=== PATIENT | male | born 1960 | race Caucasian/White ===

== ENCOUNTER 2022-09-22 11:20 | Inpatient (IN) | payer OTHER ==
[~2022-09-22] VITALS: Ht 162.6 cm; Wt 122.0 kg
[2022-09-22] VITALS (7 sets, daily range): BP systolic 147–163; BP diastolic 80–87; PULSE 55–87; RESP 18–22; TEMP 97.7–98.2; O2SAT 95–99
[2022-09-22] MEDS ORDERED: ONDANSETRON HCL INJ 2MG/ML 2ML 2 MG/ML VIAL IV STA (11:44)
[2022-09-22] MEDS ORDERED: KETOROLAC TROMETHAMINE 30 MG/ML VIAL IV STA (11:44)
[2022-09-22] MEDS ORDERED: FAMOTIDINE 20 MG/2 ML VIAL IV STA (11:44)
[2022-09-22] MEDS ORDERED: SODIUM CHLORIDE 0.9% 1000ML 1,000 ML ONE (11:49)
[2022-09-22] MEDS ORDERED: SODIUM CHLORIDE 0.9% 1000ML 1,000 ML IV ONE (12:00)
[2022-09-22] MEDS ORDERED: IOPAMIDOL 370 MG/ML 100 ML INFUS..BTL INJ ONE (12:03)
[2022-09-22] MEDS ORDERED: Vancomycin IV 1 GM in SODIUM CHLORIDE 0.9% 250ML 250 ML IV SCH (13:15)
[2022-09-22] MEDS ORDERED: SODIUM CHLORIDE 0.9% 250ML 250 ML ONE (13:30)
[2022-09-22] MEDS ORDERED: Vancomycin IV 1 GM VIAL ONE (13:30)
[2022-09-22] MEDS ORDERED: CANDESARTAN CIL16 MG PO (15:19)
[2022-09-22] MEDS ORDERED: CHLORTHALIDONE25 MG PO (15:19)
[2022-09-22] MEDS ORDERED: ATENOLOL25 MG PO (15:19)
[2022-09-22] MEDS ORDERED: AMLODIPINE BESYL5 MG PO (15:19)
[2022-09-22] MEDS: D5NS/KCL 20MEQ 1,000 ML IV SCH (16:45)
[2022-09-22] MEDS: ONDANSETRON HCL INJ 2MG/ML 2ML 2 MG/ML VIAL IV PRN ×2 (16:58→21:04)
[2022-09-22] MEDS: Morphine 4mg INJECTION 4 MG/ML INJ IV PRN ×2 (16:59→21:05)
[2022-09-22] MEDS ORDERED: ACETAMINOPHEN 325 MG TAB PO PRN (17:00)
[2022-09-22] MEDS ORDERED: DOCUSATE SODIUM 100 MG CAP PO PRN (17:00)
[2022-09-22] MEDS ORDERED: SIMETHICONE 80 MG CHEW PO PRN (17:00)
[2022-09-22] MEDS ORDERED: DEXTROSE 50% SYRINGE 50 ML IV PRN (17:15)
[2022-09-22 17:53] LABS: CHOL/HDL RATIO 3.3 (3.9-4.7)
[2022-09-22] MEDS ORDERED: AMLODIPINE BESYLATE 5 MG TAB PO ONE (18:15)
[2022-09-22] MEDS ORDERED: INSULIN REGULAR, HUMAN 100 UNIT/1 ML SQ SCH (21:00)
[2022-09-23] VITALS (10 sets, daily range): BP systolic 130–172; BP diastolic 66–96; PULSE 51–65; RESP 15–18; TEMP 97.9–98.7; O2SAT 95–98
[2022-09-23] MEDS ORDERED: SODIUM CHLORIDE 0.9% 100 ML ONE (00:07)
[2022-09-23] MEDS: METOCLOPRAMIDE HCL 10 MG/2ML VIAL IV SCH ×4 (00:11→17:13)
[2022-09-23] MEDS: FAMOTIDINE 20 MG/2 ML VIAL IV SCH ×2 (00:11→11:41)
[2022-09-23] MEDS: D5NS/KCL 20MEQ 1,000 ML IV SCH ×3 (06:13→17:14)
[2022-09-23 07:01] LABS: BASOPHILS # (AUTO) 0.1 (0.0-0.1); BASOPHILS % 0.8 % (0.0-1.0); EOSINOPHILS # (AUTO) 0.3 (0.0-0.4); EOSINOPHILS % 3.3 % (0.0-6.0); HEMATOCRIT 40.8 % (38.2-49.6); HEMOGLOBIN 13.6 g/dL (14.0-18.0); LYMPHOCYTES # (AUTO) 2.6 (1.0-3.2); LYMPHOCYTES % 32.3 % (18.0-39.1); MEAN CORPUSCULAR HEMOGLOBIN 29.7 pg (28-32); MEAN CORPUSCULAR HGB CONC 33.3 g/dL (31-35); MEAN CORPUSCULAR VOLUME 89.1 fL (81-99); MONOCYTES # (AUTO) 0.7 (0.2-0.8); MONOCYTES % 8.3 % (4.4-11.3); NEUTROPHILS # (AUTO) 4.4 (2.1-6.9); PLATELET COUNT 185 x10e3/uL (140-360); RED BLOOD COUNT 4.58 x10e6/uL (4.3-5.7); RED CELL DISTRIBUTION WIDTH 13.3 % (11.7-14.4)
[2022-09-23 07:36] LABS: ANION GAP 10.4 mmol/L (8-16); CALCIUM 8.5 mg/dL (8.4-10.2); CREATININE, SERUM 1.09 mg/dL (0.72-1.25); POTASSIUM 4.4 mmol/L (3.5-5.1)
[2022-09-23] MEDS: ONDANSETRON HCL INJ 2MG/ML 2ML 2 MG/ML VIAL IV PRN ×2 (07:44→17:45)
[2022-09-23] MEDS: Morphine 4mg INJECTION 4 MG/ML INJ IV PRN ×3 (07:44→19:49)
[2022-09-23] MEDS ORDERED: METOPROLOL TARTRATE INJ 1 MG/ML VIAL IV PRN (08:15)
[2022-09-23] MEDS ORDERED: AMLODIPINE BESYLATE 5 MG TAB PO SCH (09:00)
[2022-09-23] MEDS ORDERED: CANDESARTAN CILEXETIL 16 MG TAB PO SCH (09:00)
[2022-09-23] MEDS ORDERED: ATENOLOL 50 MG TAB PO SCH (09:00)
[2022-09-23] MEDS ORDERED: Vancomycin IV 1 GM in SODIUM CHLORIDE 0.9% 250ML 250 ML IV SCH (09:00)
[2022-09-24] MEDS: METOCLOPRAMIDE HCL 10 MG/2ML VIAL IV SCH ×2 (00:52→06:00)
[2022-09-24] MEDS: ONDANSETRON HCL INJ 2MG/ML 2ML 2 MG/ML VIAL IV PRN (00:52)
[2022-09-24] MEDS: FAMOTIDINE 20 MG/2 ML VIAL IV SCH (00:53)
[2022-09-24 00:54] VITALS: BP 135/79; PULSE 55; RESP 18; TEMP 97.8; O2SAT 97
[2022-09-24] MEDS: Morphine 4mg INJECTION 4 MG/ML INJ IV PRN (01:00)
[2022-09-24] MEDS: D5NS/KCL 20MEQ 1,000 ML IV SCH (02:08)
[2022-09-24 02:36] VITALS: PULSE 58; RESP 20; O2SAT 96
[2022-09-24 05:10] VITALS: BP 144/78; PULSE 52; RESP 16; TEMP 97.7; O2SAT 97
[2022-09-24 06:48] LABS: BASOPHILS # (AUTO) 0.1 (0.0-0.1); BASOPHILS % 0.7 % (0.0-1.0); EOSINOPHILS # (AUTO) 0.3 (0.0-0.4); EOSINOPHILS % 3.4 % (0.0-6.0); HEMATOCRIT 40.6 % (38.2-49.6); HEMOGLOBIN 13.4 g/dL (14.0-18.0); LYMPHOCYTES # (AUTO) 2.6 (1.0-3.2); LYMPHOCYTES % 29.2 % (18.0-39.1); MEAN CORPUSCULAR HEMOGLOBIN 30.3 pg (28-32); MEAN CORPUSCULAR VOLUME 91.9 fL (81-99); MONOCYTES # (AUTO) 0.9 (0.2-0.8); MONOCYTES % 10.5 % (4.4-11.3); NEUTROPHILS % 55.6 % (38.7-80.0); PLATELET COUNT 189 x10e3/uL (140-360); RED BLOOD COUNT 4.42 x10e6/uL (4.3-5.7); RED CELL DISTRIBUTION WIDTH 13.2 % (11.7-14.4)
[2022-09-24 07:13] LABS: ANION GAP 13.3 mmol/L (8-16); CALCIUM 8.6 mg/dL (8.4-10.2); CREATININE, SERUM 1.05 mg/dL (0.72-1.25); POTASSIUM 4.3 mmol/L (3.5-5.1)
[2022-09-24] MEDS ORDERED: LEVOFLOXACIN250 MG PO (07:26)
[2022-09-24] MEDS ORDERED: METRONIDAZOLE500 MG PO (07:26)
[2022-09-24] MEDS ORDERED: PANTOPRAZOLE SO40 MG PO (07:26)
[2022-09-24] MEDS ORDERED: SIMETHICONE80 MG PO (07:26)
[2022-09-24] MEDS ORDERED: ONDANSETRON ODT4 MG PO (07:28)
[2022-09-24] MEDS ORDERED: ACETAMINOPHEN-1 EAC3 PO (07:43)
== END 2022-09-24 08:22 | disposition home or self-care (01) | DRG 607 ==
LOC: FSED 11:28 → ERHOLD 13:17 → MED/SURG 13:19 → ERHOLD 13:33 → UNDOADMOB 13:33 → OBSVTOIN 09-23 08:23
PROVIDERS: ADMIT Internal Medicine; ATTEND Internal Medicine
DX: M79.3 Panniculitis, unspecified (principal); Z68.42 Body mass index [BMI] 45.0-49.9, adult; N20.0 Calculus of kidney; E66.01 Morbid (severe) obesity due to excess calories; Z85.46 Personal history of malignant neoplasm of prostate; Z90.79 Acquired absence of other genital organ(s); Z20.822 Contact with and (suspected) exposure to COVID-19
CPT/HCPCS: 36415; 74177; 80048; 80053; 80061; 81003; 82948; 83036; 84484; 85025; 93005; 94660; 94799; 96374; 96375; 96376; 99284; G0378; J1885; J2270; J2405; J2765; J7030; J7050; Q9967